=== PATIENT | male | born 1960 | race Caucasian/White ===

== ENCOUNTER 2016-06-24 12:52 | Emergency (ER) | payer MEDICARE, OTHER ==
--- NOTE | ~2016-06-24 | CR72 ---
[facility]. [facility] A Service of [facility] & [facility] / [facility] RADIOLOGY TEXT RESULTS PATIENT: RADHA SANTIAGO LOCATION: SED : 60 UNIT #: [id number] AGE: [address]: William Angel MD SEX: M ORDER DR: [id number] [place] [id number] E MR#: [id number] Acc #: [id number] NAME: RADHA SANTIAGO : 1960 SEX: M STUDY DATE/TIME: 06/24/2016 12:29 UNIT: SED ROOM: STUDY DESCRIPTION: CR Chest Single View Portable Attending Physician: William Angel M.D. Referring Physician: William Angel M.D. Ordering Physician: William Angel M.D. Primary Care Physician: Jarrell Perkins M.D. MEDICAL IMAGING REPORT This report is preliminary unless electronic signature is present. EXAM Portable chest 06/24/2016 HISTORY 55-year-old male with shortness of air beginning last night. COMPARISON Chest 04/19/2012. FINDINGS Frontal chest demonstrates clear lungs. No pleural effusion or pneumothorax. Heart size and mediastinum are normal. Pulmonary vasculature normal. IMPRESSION No acute cardiopulmonary findings. Dictated by... Wisam Perez M.D. THIS IS AN ELECTRONICALLY VERIFIED REPORT Wisam Perez M.D. at 06/25/2016 8:15 AM DIONI/prateek TD: 06/25/2016 07:48 JOB #: [id number] MEDICAL IMAGING REPORT Page 1 of 1
[~2016-06-24 12:52] MED LIST: AMOXICILLIN PO; ANTIBIOTIC; CERTAGEN PO; CLARITIN10 MG PO; FISH OIL500 M1 PO; MED FOR BLADDER; [UNRECOGNIZED DRUG - OTHER]; [UNRECOGNIZED DRUG - REMARK]
== END 2016-06-24 14:13 | disposition home or self-care (01) ==
LOC: SED 12:52
DX: J45.909 Unspecified asthma, uncomplicated (principal); Z91.018 Allergy to other foods; Z98.890 Other specified postprocedural states
CPT/HCPCS: 71010; 94640; 99283; 99284